=== PATIENT | female | born 1940 | race Caucasian/White ===

== ENCOUNTER 2021-05-03 19:07 | Emergency (ER) | payer MEDICARE, OTHER ==
[2021-05-03] MEDS ORDERED: HYDROmorphone 1 MG/ML Syringe IVPUSH ONE (19:31)
[2021-05-03] MEDS ORDERED: Sodium Chloride 0.9% 1,000 ML IV ONE (19:31)
[2021-05-03] MEDS ORDERED: Ondansetron 4 MG/2 ML SDV IVPUSH ONE ×2 (19:34→20:35)
--- NOTE | 2021-05-03 19:37 | EDM.PDOC ---
ED HPI GENERAL MEDICAL PROBLEM - General Chief Complaint: Abdominal Pain Stated Complaint: ABDOMINAL PAIN, NAUSEA Time Seen by Provider: 05/03/21 19:20 Source of Information: Reports: Patient, Family (dtr) History Limitations: Reports: No Limitations - History of Present Illness INITIAL COMMENTS - FREE TEXT/NARRATIVE: Patient presents with middle abdominal pain that started about 8 hours ago quite abruptly. She has been nauseated and has vomited several times. No diarrhea or constipation. Last bowel movement was 2 days ago and she is regular. Appetite is decreased today; she has eaten some oatmeal and a few crackers. She drinks at most 6 cups of water daily, probably less. She had her gallbladder removed in 2008 and complete hysterectomy in . Still has her appendix. She says the pain is not like with the gallstones. She had right carpal tunnel and cubital tunnel surgeries yesterday. - Related Data Allergies Allergy/AdvReac Type Severity Reaction Status Date / Time No Known Drug Allergies Allergy Cannot Verified 05/03/21 19:16 Remember Home Meds: Home Meds Aspirin [Aspirin EC] 81 mg PO DAILY 05/03/21 [History] Furosemide 80 mg PO DAILY 05/03/21 [History] Hydrocodone/Acetaminophen [Hydrocodone-Acetamin 5-325 mg] 1 each PO Q6HR PRN 05/03/21 [History] Moexipril HCl [Moexipril] 7.5 mg PO DAILY 05/03/21 [History] Naproxen Sodium [Aleve] 220 mg PO DAILY 05/03/21 [History] Omeprazole 20 mg PO DAILY 05/03/21 [History] ED ROS GENERAL - Review of Systems Review Of Systems: See Below Constitutional: Denies: Fever, Chills, Malaise, Weakness HEENT: Denies: Ear Pain, Glasses, Vision Change Respiratory: Denies: Shortness of Breath, Cough Cardiovascular: Denies: Chest Pain, Lightheadedness, Syncope Endocrine: Denies: Fatigue GI/Abdominal: Reports: Nausea, Vomiting. Denies: Abdominal Pain, Constipation, Diarrhea : Denies: Dysuria, Flank Pain Musculoskeletal: Denies: Neck Pain, Shoulder Pain, Arm Pain, Back Pain, Hand Pain, Leg Pain Skin: Denies: Cyanosis, Jaundice, Mottled, Pallor, Diaphoresis Neurological: Denies: Confusion, Dizziness, Headache, Seizure, Syncope, Trouble Speaking, Difficulty Walking Psychiatric: Denies: Agitation, Anxiety, Confusion ED EXAM, GI/ABD - Physical Exam Exam: See Below Exam Limited By: No Limitations General Appearance: Alert, WD/WN, No Apparent Distress Eyes: Bilateral: Normal Appearance, EOMI Ears: Normal External Exam, Hearing Grossly Normal Nose: Normal Inspection, No Blood Throat/Mouth: Normal Inspection, Normal Lips, Normal Voice, No Airway Compromise Head: Atraumatic, Normocephalic Neck: Normal Inspection, Full Range of Motion Respiratory/Chest: No Respiratory Distress, Lungs Clear, Normal Breath Sounds, No Accessory Muscle Use, Chest Non-Tender Cardiovascular: Normal Peripheral Pulses, Regular Rate, Rhythm, No Murmur GI/Abdominal Exam: Normal Bowel Sounds, Soft, Non-Tender (can't reproduce or exacerbate the current pain except very slightly directly over the umbilicus), No Organomegaly, No Distention Back Exam: Normal Inspection, Full Range of Motion. No: CVA Tenderness (L), CVA Tenderness (R) Extremities: Normal Inspection, Normal Range of Motion Neurological: Alert, Oriented, Normal Cognition, No Motor/Sensory Deficits Psychiatric: Normal Affect, Normal Mood Skin Exam: Warm, Dry, Intact, Normal Color, No Rash Course - Vital Signs Last Recorded V/S: Last Vital Signs Temp 96.8 F L 05/03/21 23:41 Pulse 53 L 05/03/21 23:41 Resp 24 H 05/03/21 23:41 BP 160/70 H 05/03/21 23:41 Pulse Ox 93 L 05/03/21 23:41 - Orders/Labs/Meds Orders: Active Orders 24 hr Category Date Time Status Abdomen Pelvis w Cont [CT] Stat Exams 05/03/21 20:22 Ordered Sodium Chloride 0.9% [Normal Saline] 50 ml Med 05/03/21 21:45 Active IV ASDIRECTED Medication Orders Sodium Chloride (Normal Saline) 50 mls @ 200 mls/hr IV ASDIRECTED CARLO Last Admin: 05/03/21 22:37 Dose: 200 mls/hr Documented by: HILARIO Labs: Laboratory Tests 05/03/21 05/03/21 05/03/21 Range/Units 20:21 20:33 20:33 WBC 10.33 H (5.00-10.00) 10^3/uL RBC 3.97 (3.80-5.50) 10^6/uL Hgb 12.1 (12.0-16.0) g/dL Hct 36.5 L (37.0-47.0) % MCV 91.9 (82.0-92.0) fL MCH 30.5 (27.0-31.0) pg MCHC 33.2 (32.0-36.0) g/dL RDW 12.3 (11.5-14.5) % Plt Count 281 (150-400) 10^3/uL MPV 9.2 (7.4-10.4) fL Immature Gran % (Auto) 0.3 (0.0-5.0) % Neut % (Auto) 73.9 H (50.0-70.0) % Lymph % (Auto) 16.3 L (20.0-40.0) % [place] % (Auto) 7.1 (2.0-8.0) % Eos % (Auto) 2.0 (1.0-3.0) % Baso % (Auto) 0.4 (0.0-1.0) % Neut # (Auto) 7.64 H (2.50-7.00) 10^3/uL Lymph # (Auto) 1.68 (1.00-4.00) 10^3/uL [place] # (Auto) 0.73 (0.10-0.80) 10^3/uL Eos # (Auto) 0.21 (0.10-0.30) 10^3/uL Baso # (Auto) 0.04 (0.00-0.10) 10^3/uL Immature Gran # (Auto) 0.03 (0.00-0.50) 10^3/uL Sodium 137 (136-145) mmol/L Potassium 4.1 (3.5-5.1) mmol/L Chloride 100 (98-107) mmol/L Carbon Dioxide 26.9 (21.0-32.0) mmol/L Anion Gap 14.2 (5-15) mmol/L BUN 32 H (7-18) mg/dL Creatinine 1.21 H (0.51-1.17) mg/dL Est Cr Clr Drug Dosing 28.84 mL/min Estimated GFR (MDRD) 43 mL/min Glucose 113 (70-140) mg/dL Lactic Acid (0.4-2.0) mmol/L Calcium 9.2 (8.7-10.3) mg/dL Total Bilirubin 0.5 (0.2-1.0) mg/dL AST 19 (15-37) U/L ALT 20 (14-63) U/L Alkaline Phosphatase 57 (46-116) U/L C-Reactive Protein < 0.1 (0.0-0.9) mg/dL Total Protein 7.0 (6.4-8.2) g/dL Albumin 3.84 (3.40-5.00) g/dL Lipase 310 (73-393) U/L Specimen Type Urinblad Urine Color Light yellow (YELLOW) Urine Appearance Clear (CLEAR) Urine pH 5.0 (5.0-9.0) Ur Specific Crane 1.010 (1.005-1.030) Urine Protein Negative (NEGATIVE) mg/dL Urine Glucose (UA) Negative (NEGATIVE) mg/dL Urine Ketones Negative (NEGATIVE) mg/dL Urine Occult Blood Trace-intact H (NEGATIVE) Urine Nitrite Negative (NEGATIVE) Urine Bilirubin Negative (NEGATIVE) Urine Urobilinogen 0.2 (0.2-1.0) E.U./dL Ur Leukocyte Esterase Negative (NEGATIVE) U Hyaline Cast (Auto) Rare Urine RBC 0-5 (0-5) /HPF Urine WBC Not seen (0-5) /HPF Ur Epithelial Cells Rare /LPF Urine Bacteria Not seen (NONE TO FEW) /HPF Urine Mucus Few H (NEGATIVE) /LPF 05/03/21 Range/Units 20:33 WBC (5.00-10.00) 10^3/uL RBC (3.80-5.50) 10^6/uL Hgb (12.0-16.0) g/dL Hct (37.0-47.0) % MCV (82.0-92.0) fL MCH (27.0-31.0) pg MCHC (32.0-36.0) g/dL RDW (11.5-14.5) % Plt Count (150-400) 10^3/uL MPV (7.4-10.4) fL Immature Gran % (Auto) (0.0-5.0) % Neut % (Auto) (50.0-70.0) % Lymph % (Auto) (20.0-40.0) % [place] % (Auto) (2.0-8.0) % Eos % (Auto) (1.0-3.0) % Baso % (Auto) (0.0-1.0) % Neut # (Auto) (2.50-7.00) 10^3/uL Lymph # (Auto) (1.00-4.00) 10^3/uL [place] # (Auto) (0.10-0.80) 10^3/uL Eos # (Auto) (0.10-0.30) 10^3/uL Baso # (Auto) (0.00-0.10) 10^3/uL Immature Gran # (Auto) (0.00-0.50) 10^3/uL Sodium (136-145) mmol/L Potassium (3.5-5.1) mmol/L Chloride (98-107) mmol/L Carbon Dioxide (21.0-32.0) mmol/L Anion Gap (5-15) mmol/L BUN (7-18) mg/dL Creatinine (0.51-1.17) mg/dL Est Cr Clr Drug Dosing mL/min Estimated GFR (MDRD) mL/min Glucose (70-140) mg/dL Lactic Acid 0.4 (0.4-2.0) mmol/L Calcium (8.7-10.3) mg/dL Total Bilirubin (0.2-1.0) mg/dL AST (15-37) U/L ALT (14-63) U/L Alkaline Phosphatase (46-116) U/L C-Reactive Protein (0.0-0.9) mg/dL Total Protein (6.4-8.2) g/dL Albumin (3.40-5.00) g/dL Lipase (73-393) U/L Specimen Type Urine Color (YELLOW) Urine Appearance (CLEAR) Urine pH (5.0-9.0) Ur Specific Crane (1.005-1.030) Urine Protein (NEGATIVE) mg/dL Urine Glucose (UA) (NEGATIVE) mg/dL Urine Ketones (NEGATIVE) mg/dL Urine Occult Blood (NEGATIVE) Urine Nitrite (NEGATIVE) Urine Bilirubin (NEGATIVE) Urine Urobilinogen (0.2-1.0) E.U./dL Ur Leukocyte Esterase (NEGATIVE) U Hyaline Cast (Auto) Urine RBC (0-5) /HPF Urine WBC (0-5) /HPF Ur Epithelial Cells /LPF Urine Bacteria (NONE TO FEW) /HPF Urine Mucus (NEGATIVE) /LPF Meds: Medications Generic Name Dose Route Start Last Admin Trade Name Arsen PRN Reason Stop Dose Admin Sodium Chloride 50 mls @ 200 mls/hr 05/03/21 21:45 05/03/21 22:37 Normal Saline IV 200 mls/hr ASDIRECTED CARLO Administration Discontinued Medications Generic Name Dose Route Start Last Admin Trade Name Farzadq PRN Reason Stop Dose Admin Hydromorphone HCl 1 mg 05/03/21 19:31 05/03/21 20:04 Hydromorphone 1 Mg/Ml Syringe IVPUSH 05/03/21 19:32 0.5 mg ONETIME ONE Administration Sodium Chloride 1,000 mls @ 999 mls/hr 05/03/21 19:31 05/03/21 19:53 Normal Saline IV 05/03/21 20:31 999 mls/hr .BOLUS ONE Administration Iopamidol 75 ml 05/03/21 21:45 05/03/21 22:37 Iopamidol 755 Mg/Ml 75 Ml Bottle IVPUSH 05/03/21 21:46 75 ml ONETIME ONE Administration Ondansetron HCl 4 mg 05/03/21 19:34 05/03/21 19:48 Ondansetron 4 Mg/2 Ml Sdv IVPUSH 05/03/21 19:35 4 mg ONETIME ONE Administration Ondansetron HCl Confirm 05/03/21 20:27 05/03/21 23:44 Ondansetron 4 Mg/2 Ml Sdv Administered 05/03/21 20:28 Not Given Dose 4 mg .ROUTE .STK-MED ONE Ondansetron HCl 4 mg 05/03/21 20:35 05/03/21 23:43 Ondansetron 4 Mg/2 Ml Sdv IVPUSH 05/03/21 20:36 4 mg ONETIME ONE Administration - Re-Assessments/Exams Free Text/Narrative Re-Assessment/Exam: 05/03/21 22:40 WBC 10.3, ANC 7.4, Creatinine 1.21. Waiting on CT results. The mild leukocytosis could be a result of the recent N/V. 05/03/21 23:05 Patient is feeling like she should be able to vomit but can't. This is typical for her with nausea likely related to her hiatal hernia. She has had Zofran 4 mg IV twice now. Waiting on CT results. 05/04/21 00:03 CT shows high grade small bowel obstruction. Patient would like to go to [facility] in [place]. Discussed case with Dr. Yehuda GARBER who accepted for transfer. 05/04/21 00:08 Patient wants to go by private vehicle with her daughter. I feel this will be appropriate. Discharged in stable condition. Departure - Departure Time of Disposition: 00:01 Disposition: DC/Tfer to Acute Hospital 02 Condition: Good Clinical Impression: Small bowel obstruction, Sliding hiatal hernia, Splenic lesion Abdominal pain Qualifiers: Abdominal location: upper abdomen, unspecified Qualified Code(s): R10.10 - Upper abdominal pain, unspecified - Discharge Information Referrals: Naomi Hernandez PA-C [Primary Care Provider] - Forms: ED Department Discharge Sepsis Event Note (ED) - Evaluation Sepsis Screening Result: No Definite Risk - Focused Exam Vital Signs: Vital Signs Temp Pulse Resp BP Pulse Ox 05/03/21 23:41 96.8 F L 53 L 24 H 160/70 H 93 L 05/03/21 20:24 52 L 119/51 L 88 L 05/03/21 20:09 55 L 155/69 H 95 05/03/21 19:17 97.4 F 55 L 20 150/76 H 95 - My Orders Last 24 Hours: My Active Orders 05/03/21 20:22 Abdomen Pelvis w Cont [CT] Stat 05/03/21 21:45 Sodium Chloride 0.9% [Normal Saline] 50 ml IV ASDIRECTED - Assessment/Plan Last 24 Hours: My Active Orders 05/03/21 20:22 Abdomen Pelvis w Cont [CT] Stat 05/03/21 21:45 Sodium Chloride 0.9% [Normal Saline] 50 ml IV ASDIRECTED
[2021-05-03] MEDS: Ondansetron 4 MG/2 ML SDV ONE ×2 (20:38→23:44)
[2021-05-03 21:17] LABS: ANION GAP 14.2 mmol/L (5-15); CHLORIDE,CL 100 mmol/L (98-107); SODIUM,NA 137 mmol/L (136-145)
[2021-05-03] MEDS ORDERED: Iopamidol 755 Mg/ML 75 ML Bottle IVPUSH ONE (21:45)
[2021-05-03] MEDS ORDERED: Sodium Chloride 0.9% 50 ML IV SCH (21:45)
== END 2021-05-04 00:20 ==
LOC: KA.ED 19:07
DX: K56.609 Unspecified intestinal obstruction, unspecified as to partial versus complete obstruction (principal); K44.0 Diaphragmatic hernia with obstruction, without gangrene; D73.89 Other diseases of spleen; Z79.82 Long term (current) use of aspirin; Z79.899 Other long term (current) drug therapy
CPT/HCPCS: 36415; 74177; 80053; 81001; 83605; 83690; 85025; 86140; 96374; 96375; 96376; 99284; 99285; J1170; J2405; J7030; Q9967

== ENCOUNTER 2022-01-02 09:58 | Day surgery (SDC) | payer MEDICARE, OTHER ==
[2022-01-02] MEDS: Lactated Ringers 1,000 ML IV SCH (10:43)
[2022-01-02] MEDS ORDERED: Midazolam 1 MG/ML 2 ML SDV ONE (10:44)
[2022-01-02] MEDS ORDERED: Propofol 200 MG/20 ML SDV ONE (10:45)
[2022-01-02] MEDS ORDERED: Lidocaine 2% 5 ML SDV ONE (11:11)
[2022-01-02] MEDS: Bacitracin/Neomycin/Polymyxin B Oint 0.9 GM U/D Packet TOP ONE (11:39)
[2022-01-02] MEDS ORDERED: Bacitracin/Neomycin/Polymyxin B Oint 0.9 GM U/D Packet ONE (11:41)
[2022-01-02 15:43] VITALS: BP 147/65; PULSE 50
== END 2022-01-02 14:15 | disposition home or self-care (01) ==
LOC: KA.SDS 09:58
PROVIDERS: ATTEND Surgery
DX: K31.89 Other diseases of stomach and duodenum (principal); K31.7 Polyp of stomach and duodenum; K44.9 Diaphragmatic hernia without obstruction or gangrene; I87.2 Venous insufficiency (chronic) (peripheral); Z79.82 Long term (current) use of aspirin; Z79.899 Other long term (current) drug therapy
CPT/HCPCS: J7120